=== PATIENT | male | born 1995 | race Hispanic/Latino ===

== ENCOUNTER 2017-08-13 16:12 | Emergency (ER) | payer MEDICARE, OTHER ==
[2017-08-13 16:14] VITALS: BMI 22.6
[2017-08-13 16:18] VITALS: TEMP 97.6
[2017-08-13] MEDS ORDERED: Naproxen 550 mg Tab PO STA (16:20)
--- NOTE | 2017-08-13 17:23 | ED PDOC ---
Arrival/HPI - General Chief Complaint: Finger,Hand,&Wrist Time Seen by Provider: 08/13/17 16:19 Historian: Patient - History of Present Illness Narrative History of Present Illness (Text): 08/13/17 17:21 22 yo M reports injuring his L 3rd hand when it "got slammed in a car door" last night. Otherwise: (-) other injury, (-) numbness. Patient is R hand dominant. Past Medical History - Provider Review Nursing Documentation Reviewed: Yes - Past History Past History: No Previous - Infectious Disease Hx of Infectious Diseases: None - Psychiatric Hx Substance Use: No - Past Surgical History Past Surgical History: No Previous - Anesthesia Hx Anesthesia: No Family/Social History - Physician Review Nursing Documentation Reviewed: Yes Family/Social History: Unknown Family HX Smoking Status: Never Smoked Hx Alcohol Use: No Hx Substance Use: No Hx Substance Use Treatment: No Allergies/Home Meds Allergies/Adverse Reactions: Allergies tree nut Allergy (Verified 08/13/17 16:14) ANAPHYLAXIS Home Medications: Home Meds Medication Instructions Recorded Confirmed No Known Home Med 08/13/17 08/13/17 Review of Systems - Review of Systems Constitutional: Normal. absent: Fatigue, Weight Change, Fevers Musculoskeletal: Normal, Arthralgias, Joint Swelling. absent: Back Pain, Neck Pain Skin: Normal. absent: Rash, Pruritis, Skin Lesions Physical Exam - Physical Exam Narrative Physical Exam (Text): 08/13/17 17:22 GENERAL APPEARANCE: Patient is awake, alert, oriented x 3, in mild painful distress. SKIN: Warm, (-) rash, (-) lesions. UPPER EXTREMITY: (+) Tenderness, (+) swelling, (+) ecchymosis of the distal L 3rd phalanx with (+) subungual hematoma; (-) crepitus, (-) deformity. Tendon function intact. (-) distal neurovascular deficit. 2 point discrimination intact. Remainder of hand, digits and wrist: (-) injury. Vital Signs Temp Pulse Resp BP Pulse Ox 08/13/17 18:30 73 17 127/76 99 08/13/17 17:58 75 18 128/71 97 08/13/17 16:16 97.6 F 80 17 132/78 97 Medical Decision Making ED Course and Treatment: 08/13/17 17:22 22 yo M reports injuring his L 3rd hand when it "got slammed in a car door" last night. Plan : - XR L 3rd digit - Naprosyn PO 08/13/17 18:20 XR L 3rd digit : (-) fracture, (-) dislocation, as read by PA Patient advised that official radiology read of XR is still pending and will call the patient if there is any discrepancy within 24 hours. X-ray results discussed with the patient in great detail. Prior to procedure "time out" was called in order to confirm the correct patient and procedure. Through aseptic technique, local anesthesia was administered to the L 3rd digit, subungual hematoma evacuated with cautery by TRUPTI. Clean dressing was applied. Patient advised to follow up with primary care physician or referral provided in 1-2 days without fail. Advised to ice, and elevate, take OTC pain medication prn for pain. Return to the emergency room at any time for any new or worsening symptoms. Patient states he fully agrees with and understands discharge instructions. States that he agrees with the plan and disposition. Verbalized and repeated discharge instructions and plan. I have given the patient opportunity to ask any additional questions. - RAD Interpretation Radiology Orders: 08/13/17 16:19 HAND LEFT 3RD DIGIT (FINGER) [RAD] Stat - Medication Orders Current Medication Orders: Discontinued Medications Lidocaine HCl (Lidocaine 1% (20ml)) 5 ml IJ STAT STA Stop: 08/13/17 17:45 Naproxen (Anaprox Ds) 550 mg PO ONCE STA Stop: 08/13/17 16:21 Last Admin: 08/13/17 16:55 Dose: 550 mg - PA / [employer] [facility] / Resident Statement MD/DO has reviewed & agrees with the documentation as recorded. Disposition/Present on Arrival - Present on Arrival Any Indicators Present on Arrival: No History of DVT/PE: No History of Uncontrolled Diabetes: No Urinary Catheter: No History of Decub. Ulcer: No History Surgical Site Infection Following: None - Disposition Have Diagnosis and Disposition been Completed?: Yes Diagnosis: Finger contusion, Subungual hematoma Disposition: HOME/ ROUTINE Disposition Time: 18:10 Patient Plan: Discharge Condition: STABLE Discharge Instructions (ExitCare): Subungual Hematoma (ED), Contusion in Adults (ED) Print Language: BANGLADESHI Additional Instructions: Thank you for letting us take care of you today. You were treated for finger contusion / subungual hematoma. The emergency medical care you received today was directed at your acute symptoms. Ice and elevate, take over the counter aleeve 2 tabs every 12 hours as needed for pain. It may take several days for your symptoms to resolve. Return to the Emergency Department if your symptoms worsen, do not improve, or if you have any other problems. Please contact your doctor in 2 days for re-evaluation and follow up. Bring any paperwork you were given at discharge with you along with any medications you are taking to your follow up visit. Our treatment cannot replace ongoing medical care by a primary care provider (PCP) outside of the emergency department. Thank you for allowing the [facility] team to be part of your care today. If you had an X-Ray : A Radiologist will review the ED reading if any change in treatment is needed we will contact you. Referrals: Neeru Chen, [Primary Care Provider] - Follow up with primary Maira Hays MD [Staff Provider] - Follow up with primary [facility] at [facility] [place] [Outside] - Follow up with primary Forms: [employer] ([place]), WORK NOTE, SCHOOL NOTE
[2017-08-13] MEDS ORDERED: Lidocaine 1% Inj (20ml) IJ STA (17:44)
[2017-08-13] MEDS ORDERED: Lidocaine 1% Inj (20ml) ONE (17:47)
--- NOTE | 2017-08-13 18:29 | RAD ---
PROCEDURE: Left middle finger radiographs. HISTORY: pain COMPARISON: None. TECHNIQUE: AP radiograph of the left hand, as well as spot oblique and lateral images of left middle finger were obtained. FINDINGS: LEFT MIDDLE FINGER: Left middle finger normal, without fracture of focal lesion. Remainder of the left hand (as seen on the AP view) is grossly unremarkable. JOINTS: Normal. SOFT TISSUES: Normal. OTHER FINDINGS: None. IMPRESSION: No evidence of acute fracture or dislocation.
[2017-08-13 19:15] VITALS: BP 127/76; PULSE 73; RESP 17; O2SAT 99
== END 2017-08-13 18:30 | disposition home or self-care (01) ==
LOC: ED 16:12
DX: S60.032A Contusion of left middle finger without damage to nail, initial encounter (principal); W23.0XXA Caught, crushed, jammed, or pinched between moving objects, initial encounter